=== PATIENT | female | born 1955 | race Caucasian/White ===

== ENCOUNTER 2021-11-10 21:25 | Emergency (ER) | payer MEDICARE ==
--- NOTE | 2021-11-10 23:29 | XR ---
EXAMINATION TYPE: XR forearm RT DATE OF EXAM: 11/10/2021 COMPARISON: NONE HISTORY: Pain TECHNIQUE: 2 views FINDINGS: There is nondisplaced transverse fracture of the neck of the radial head. The remainder of exam is unremarkable. IMPRESSION: Radial head fracture without displacement.
--- NOTE | 2021-11-10 23:31 | XR ---
EXAMINATION TYPE: XR humerus RT DATE OF EXAM: 11/10/2021 COMPARISON: NONE HISTORY: Pain TECHNIQUE: 2 view FINDINGS: Humerus is intact. Shoulder joint is anatomic. IMPRESSION: No evidence of humeral fracture.
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
[2021-11-11] MEDS ORDERED: HYDROcodone/APAP 5-325MG 1 EACH TAB PO STA (00:53)
[2021-11-11] MEDS ORDERED: IBUPROFEN 600 MG STARTER PACK 4 TAB BTL PO STA (01:08)
[2021-11-11] MEDS ORDERED: ACET/COD 300 MG/30 MG STARTER PACK 6 TAB BTL PO STA (01:08)
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
[2021-11-11 01:16] VITALS: BP 120/67; PULSE 76; RESP 20; TEMP 98.1
== END 2021-11-11 01:16 | disposition home or self-care (01) ==
LOC: EC 21:25
DX: S52.124A Nondisplaced fracture of head of right radius, initial encounter for closed fracture (principal); V28.4XXA Motorcycle driver injured in noncollision transport accident in traffic accident, initial encounter; Y92.410 Unspecified street and highway as the place of occurrence of the external cause
CPT/HCPCS: 29515; 99284